=== PATIENT | female | born 1995 | race Caucasian/White ===

== ENCOUNTER 2025-02-27 11:33 | Outpatient (AMB) | payer MEDICAID, SELFPAY ==
--- NOTE | 2025-02-27 11:40 | OBCLNT_ITS ---
Vital Signs 02/27/25 11:48 Height 1.55 m Height Method Stated Weight 45.87 kg Weight Measurement Method Standing Scale BMI 19.1 BP 98/62 Blood Pressure Source Automatic Cuff Blood Pressure Location Right Upper Arm Position Sitting Respiration 18 Pulse 91 Pulse Source Monitor Temp 97.8 F Temp Source Oral Pulse Oximetry (%) 98 Oxygen Delivery Method Room Air Allergies/Home Meds Allergies & Medications Allergies No Known Allergies Allergy (Verified 02/27/25 11:49) Medication Reconciliation No Known Home Medications 02/27/25 [History Confirmed 02/27/25] Intake Visit Data Collection New Patient or Established: New Patient (never been to [facility]) Reason for Visit:: INITIAL CARE Seen by Clinical Staff ONLY (RN/MA): No Unemployment Specialist Required: No Do You Feel Safe at Home: Yes Authorities Contacted: N/A PCP or OBGYN visit in last 3 months: No Hx Now: Yes Are you currently on any form of Control: No Pain Present Currently: No Pain Scale Used: Carrasco-Roberto/Numerical Pain scale:: 0 Smoking Status Smoking Status: Never smoker Questionnaires Covid-19 Vaccine Questionnaire Has patient been vacinated for Covid-19 Have you been vacinated for Covid-19: Yes PHQ-9 PHQ-2 Over the last 2 weeks, how often have you been bothered by any of the following problems? 1. Little interest or pleasure in doing things: not at all 2. Feeling down, depressed, or hopeless: not at all Total score: 0 PHQ-9 3. Trouble falling or staying asleep, or sleeping too much: Not at all 4. Feeling tired or having little energy: Not at all 5. Poor appetite or overeating: Not at all 6. Feeling bad about yourself - or that you are a failure or have let yourself or your family down: Not at all 7. Trouble concentrating on things, such as reading the newspaper or watching television: Not at all 8. Moving or speaking so slowly that other people could have noticed? - Or the opposite - being so fidgety or restless that you have been moving around a lot more than usual: not at all 9. Thoughts that you would be better off or of hurting yourself in some way: Not at all Total score: 0 Source: Developed by Drs. Nadeem LJody Sheehan Kurt Kroenke and colleagues, with an educational eve from [employer]. Depression screen completed yes Social History Living Situation History Marital Status: Lives With: Family Housing: House Tobacco History Smoking Status: Never smoker Second Hand Smoke Exposure: No Alcohol History Alcohol Intake: Never Domestic Abuse History Do You Feel Safe at Home: Yes Past Medical History Past Medical History Have you ever been diagnosed with any of the following: History of Present Illness HPI Narrative 29 yo IUP 15w5 for OBI. LMP 11/12/24. EDC 08/19/25. happy with . sure date,unplanned, taking PNV, went to [facility] for confirmation. denies sab complaints, + fm. denies existing health issue, no social habit,no surgery. no early complaints OB Initial Visit OB Flowsheet OB Flowsheet Initial Weight: Not Recorded Date -?-?-?-?-?-?-?-?-?-?-?-?- EGA Weight Edema CTX Effacement BP Fundal ht Pres Dilation Effacement Station Visit Note Alb Glu FHR Mov 02/27/25 -?-?-?-?-?-?-?-?-?-?-?-?- 15w 2d 45.87 kg absent absent 98/62 16 unknown 29 yo , iup 15w5, sure date. no second tri complaints, no sab complaints, + fm. taking PNV, OB panel ordered with NIPT and carrier screen, patient has presumptive, schedule mfm referral. continue pnv, discuss diet and weight. rtc 4 week 156 active Menstrual History Menstrual reliability: approximate (month known) Flow: normal Menstrual regularity: regular Monthly: Yes On control pills at conception: No Associated symptoms (LMP): Reports nausea, vomiting, fatigue, breast tenderness and irritability Other symptoms: HEADACHES, DIZZINESS OB History : 2 Para: 1 # of Living Children: 1 Delivery History 1st : Child's name: DAYLIN date: 10/04/22 sex: male Gestational age at delivery (weeks): 37 Delivery type: vaginal Delivery complications: NONE History of depression before or after : No Infection History & Risk Evaluation History of STDs: none HIV risk evaluation: low risk Hepatitis B risk evaluation: low risk Patient or partner has history of Genital Herpes: Yes Genetic Screening & History Genetic Screening/Teratology Counseling - Includes patient, baby's father, or anyone in either family with: 1. Patient's age 35 years or older as of estimated date of delivery: No 2. Thalassemia (Icelandic, Kosovan, Mediterranean, or Background); MCV less than 80: No 3. Neural Tube Defect (Meningomyelocele, Spina Bifida, or Anencephaly): No 4. Congenital Heart Defect: No 5. Down Syndrome: No 6. Freddie-Sachs (Ashkenazi Episcopal, Cajun, [place]an [place]): No 7. Tory Disease (Ashkenazi Episcopal): No 8. Familial Dysautonomia (Ashkenazi Episcopal): No 9. Sickle Cell Disease or Trait (): No 10. Hemophilia or other blood disorders: No 11. Muscular Dystrophy: No 12. Cystic Fibrosis: No 13. Jayjay's Chorea: No 14. Mental Retardation/Autism: No 15. Other inherited genetic or chromosomal disorder: No 16. Maternal Metabolic Disorder (EG,TYPE 1 Diabetes, PKU): No 17. Patient or baby's father had a child with defects not listed above: No 18. Recurrent loss or a stillbirth: No 19. Medications (including supplements, vitamins, herbs or otc drugs)/illicit/re creational drugs/alcohol since last menstrual period: No 20. Any other: No Infection History 1. Live with someone with TB or exposed to TB: No 2. Rash or viral illness since last menstrual period: No 3. Hepatitis B,C: No Other (see comments) Source: [employer] Review of Systems Review of Systems Systems Reviewed: All systems reviewed, normal except as documented Constitutional Constitutional: Reports fatigue Gastrointestinal Gastrointestinal: Reports nausea and Reports vomiting Psychiatric Psychiatric: Reports irritability Endocrine Endocrine: Reports fatigue Exam Narrative Physical exam: fh:16, fht: 165 General Limitations: no limitations General Appearance: alert, in no apparent distress, comfortable, cooperative, he althy appearing, well developed and well groomed Head Head exam: atraumatic, normocephalic and normal inspection Chest Chest inspection: Present normal inspection and symmetric chest wall rise Resp Respiratory exam: Present normal lung sounds bilaterally Card Cardiovascular exam: Present regular rate, normal rhythm and normal heart sounds Abdominal Abdominal exam: Present soft and normal bowel sounds Psych Psychiatric exam: Present normal affect and normal mood Assessment & Plan Diagnosis / Problem List (1) Encounter for supervision of normal in multigravida in second trimester: Status: Acute Plan continue PNV, sab precaution, order ob panel, NIPT and carrier screen, schedule MFM appointment. discuss diet and weight. rtc 4 week Additional Plan Follow Up: 4 Weeks (obc) Office Procedures OB Clinic LOC & Office Proc's Nursing/Assessment Patient Status: Initial/New Patient OB Clinic Nursing Assessment: Medication Reconciliation, Update PMH in EMR and Vital Signs OB Clinic Coordination of Care: Complex Care and Chronic Disease 1-5, Consent,records obtained, informed consent, Education Simp Pt/Fam, Lab and Imaging orders, Results/Orders obtained and Staff clarify orders Special Needs: Heart tones New Patient Charge New Patient Point Assignment: [id number] New Patient Point Charge: MOTOR TEACHER Level 4 ([id number])
[2025-02-27 11:48] VITALS: BP 98/62; PULSE 91; RESP 18; TEMP 36.6; O2SAT 98; BMI 19.1
== END 2025-02-27 12:02 | disposition home or self-care (01) ==
LOC: HODSOBC 11:33
PROVIDERS: PCP Advanced Practice Midwife; Referring Provider Advanced Practice Midwife; Supervising Provider Obstetrics & Gynecology; Visit Provider Advanced Practice Midwife
DX: Z34.82 Encounter for supervision of other normal pregnancy, second trimester (principal); Z3A.15 15 weeks gestation of pregnancy
CPT/HCPCS: 81001; 99204; G0463

== ENCOUNTER 2025-03-27 10:25 | Outpatient (AMB) | payer MEDICAID, SELFPAY ==
[2025-03-27 10:51] VITALS: BP 99/62; PULSE 83; RESP 17; TEMP 36.6; O2SAT 97; BMI 19.3
--- NOTE | 2025-03-27 10:51 | AMB.OBVISIT ---
Vital Signs 03/27/25 10:51 Height 1.55 m Height Method Stated Weight 46.437 kg Weight Measurement Method Standing Scale BMI 19.3 BP 99/62 Blood Pressure Source Automatic Cuff Blood Pressure Location Right Upper Arm Position Sitting Respiration 17 Pulse 83 Pulse Source Monitor Temp 97.8 F Temp Source Temporal Artery Scan Pulse Oximetry (%) 97 Oxygen Delivery Method Room Air Allergies/Home Meds Allergies & Medications Allergies No Known Allergies Allergy (Verified 03/27/25 10:53) Medication Reconciliation ferrous sulfate 325 mg (65 mg iron) tablet 325 mg PO BID 30 days #60 tabs 03/27/25 [Rx] Intake Visit Data Collection New Patient or Established: Established Patient (seen at [facility] within 3 years) Reason for Visit:: OBC Seen by Clinical Staff ONLY (RN/MA): No Dental Appliance Fixer Required: No Do You Feel Safe at Home: Yes Authorities Contacted: N/A PCP or OBGYN visit in last 3 months: Yes Date of Last PCP or OBGYN visit: 02/27/25 Hx Now: Yes Are you currently on any form of Control: No Pain Present Currently: No Pain Scale Used: Carrasco-Roberto/Numerical Pain scale:: 0 Smoking Status Smoking Status: Never smoker Questionnaires Covid-19 Vaccine Questionnaire Has patient been vacinated for Covid-19 Have you been vacinated for Covid-19: Yes PHQ-9 PHQ-2 Over the last 2 weeks, how often have you been bothered by any of the following problems? 1. Little interest or pleasure in doing things: not at all 2. Feeling down, depressed, or hopeless: not at all Total score: 0 PHQ-9 3. Trouble falling or staying asleep, or sleeping too much: Not at all 4. Feeling tired or having little energy: Not at all 5. Poor appetite or overeating: Not at all 6. Feeling bad about yourself - or that you are a failure or have let yourself or your family down: Not at all 7. Trouble concentrating on things, such as reading the newspaper or watching television: Not at all 8. Moving or speaking so slowly that other people could have noticed? - Or the opposite - being so fidgety or restless that you have been moving around a lot more than usual: not at all 9. Thoughts that you would be better off or of hurting yourself in some way: Not at all If you checked off any problems, how difficult have these problems made it for you to do your work, take care of things at home, or get along with other people?: not difficult at all Source: Developed by Drs. Nadeem Elliott, Jody Lazo, Wilton Marx and colleagues, with an educational eve from [employer]. Depression screen completed yes Social History Living Situation History Lives With: Family Housing: House Tobacco History Smoking Status: Never smoker Second Hand Smoke Exposure: No Alcohol History Alcohol Intake: Never Domestic Abuse History Do You Feel Safe at Home: Yes Care OB Visit Log OB Flowsheet Initial Weight: Not Recorded Date <del>?</del> EGA Weight BP Alb Glu CTX Pres Fundal ht FHR Mov Dilation Station Effacement Hx Notes Visit Note 02/27/25 <del>?</del> 14w 0d 45.87 kg 98/62 absent unknown 16 156 active 29 yo , iup 15w5, sure date. no second tri complaints, no sab complaints, + fm. taking PNV, OB panel ordered with NIPT and carrier screen, patient has presumptive, schedule mfm referral. continue pnv, discuss diet and weight. rtc 4 week 03/27/25 <del>?</del> 18w 0d 46.437 kg 99/62 absent unknown 18 156 active doing well. eating, no SAB complaints, refused AFP today discussed AFP, sab precaution and danger s/s discussed, increase protiene and diet, iron bid ordered, MFM scan was fax, rtc 4 week obc ROBBIE Calculator Estimated Delivery Date Method Current WG Current Estimate 08/28/25 Ultrasound #1 18w 0d Other Estimates 08/19/25 LMP (Certain) 19w 2d Notes Visit Date: 03/27/25 Last Updated by: Lian Chambers CNM AB+,abs-,rpr;;nr, rub imm, hbsag-,hiv-, GC/CT-, NIPT and carrier screen- Visit Date: 02/27/25 Last Updated by: Lian Chambers CNM 29 yo , . lmp 11/12/24:: edc: 08/19/25 Office Procedures OB Clinic LOC & Office Proc's Nursing/Assessment Patient Status: Established Patient OB Clinic Nursing Assessment: Medication Reconciliation, Update PMH in EMR and Vital Signs OB Clinic Coordination of Care: Complex Care and Chronic Disease 1-5, Consent,records obtained, informed consent, Education Simp Pt/Fam and Staff clarify orders Special Needs: Heart tones Established Patient Charge Established Patient Point Assignment: 115 Established Patient Point Charge: EP Level 3 (80-115) Assessment & Plan Diagnosis / Problem List (1) Encounter for supervision of normal in multigravida in second trimester: Status: Acute Plan Discussed SAB precautions. I discussed weight gain with patient and advise increased protein and small frequent meals, and increase fluids. Patient to start iron 325 twice daily. And return in 3 weeks OB check Additional Plan Follow Up: 4 Weeks (obc)
== END 2025-03-27 11:12 | disposition home or self-care (01) ==
LOC: HODSOBC 10:25
PROVIDERS: PCP Advanced Practice Midwife; Referring Provider Advanced Practice Midwife; Supervising Provider Advanced Practice Midwife; Visit Provider Advanced Practice Midwife
DX: Z34.82 Encounter for supervision of other normal pregnancy, second trimester (principal); Z3A.18 18 weeks gestation of pregnancy
CPT/HCPCS: 99213; G0463

== ENCOUNTER 2025-07-03 08:20 | Outpatient (CLI) | payer MEDICAID, SELFPAY ==
[2025-07-03 08:31] VITALS: BP 111/68; PULSE 73; RESP 16; TEMP 36.6; O2SAT 99
--- NOTE | 2025-07-03 08:34 | XR_ITS ---
Examination: Biophysical profile, ultrasound Date and time of exam: July 03, 2025 0857 hours INDICATIONS: Diagnosis intrauterine growth retardation Technique: Multiple transabdominal sonographic images of the pelvis abdomen obtained. Attention is directed to the breathing movement, gross body movement, amniotic fluid volume and tone. Findings: Amniotic fluid index 7.9 cm Total biophysical profile is 8 of 8. breathing movement is 2. Gross body movement is 2. tone is 2. Qualitative amniotic fluid volume is 2 Impression: Biophysical profile is 8 of 8.
[2025-07-03 08:35] VITALS: BMI 21.2
[2025-07-03 08:36] VITALS: BP 111/68; PULSE 73; RESP 16; RESP 99; TEMP 36.6
== END 2025-07-03 09:30 | disposition home or self-care (01) ==
LOC: S4S1 08:24 → S4SX 08:25
PROVIDERS: Referring Provider Obstetrics & Gynecology; Visit Provider Obstetrics & Gynecology
DX: O36.5990 Maternal care for other known or suspected poor fetal growth, unspecified trimester, not applicable or unspecified (principal); Z3A.00 Weeks of gestation of pregnancy not specified
CPT/HCPCS: 59025; 76819